=== PATIENT | male | born 1960 | race Two or more races ===

== ENCOUNTER 2024-09-11 19:33 | Emergency (ER) | payer OTHER ==
[~2024-09-11] VITALS: Ht 175.3 cm; Wt 86.2 kg
[2024-09-12] MEDS ORDERED: DOLOGESIC-DF 51 EACH PO (02:37)
== END 2024-09-12 02:45 ==
LOC: ER 20:19
DX: K40.90 Unilateral inguinal hernia, without obstruction or gangrene, not specified as recurrent (principal); R10.9 Unspecified abdominal pain; Z88.6 Allergy status to analgesic agent
CPT/HCPCS: 74022; 74177; Q9965

== ENCOUNTER 2024-10-22 05:22 | Day surgery (SDC) | payer OTHER ==
[2024-10-17 07:47] VITALS: BP 160/88
[2024-10-17 08:14] LABS: BASO % 1.6 % (0.1-1.2); EOS # 0.49 (0.04-0.54); EOS % 8.8 % (0.7-7.0); LYMPH # 1.04 (1.18-3.74); LYMPH % 18.7 % (19.3-53.1); MEAN PLATELET VOLUME 9.70 fl (9.4-12.4); MONO # 0.59 (0.24-0.82); MONO % 10.6 % (4.7-12.5); NEUT # 3.35 (1.56-6.13); NEUT % 60.1 % (34.0-71.1); RED CELL DISTRIBUTION WIDTH 12.0 % (11.6-14.4)
[2024-10-17 08:32] LABS: INR 0.94
[2024-10-17 08:33] LABS: URINE APPEARANCE Clear; URINE BILIRRUBIN Negative (NEGATIVE); URINE BLOOD Negative; URINE COLOR Yellow; URINE GLUCOSE Negative (NEGATIVE); URINE KETONE Negative (NEGATIVE); URINE LEUKOCYTE Negative; URINE NITRATE Negative; URINE PROTEIN Negative (NEGATIVE); URINE UROBILINOGEN 1.0 E.U./dl
[2024-10-17 08:43] LABS: URINE BACTERIA 1.1 uL (0.0-1933); URINE CAST 0.00 uL (0.0-1.40); URINE EPITHELIAL CELLS 0.1 uL (0.0-38.8); URINE RBC 1.1 uL (0.0-20.8); URINE WBC 0.1 uL (0.0-23.2)
[2024-10-17 09:08] LABS: ALT/SGPT 35.0 U/L (12-78); AST/SGOT 21.0 U/L (15-37); BILIRUBIN TOTAL 1.32 mg/dL (0.3-1.2); BUN CREA RATIO 18.0 (7.0-25.0); CREATININE SERUM 0.74 mg/dL (0.70-1.30); GFR 107.17; GLOBULINA 3.7 G/DL (2.4-3.5); GLUCOSE FASTING 102.0 mg/dL (65-100); OSMOLALITY SERUM 283.0 MOSM/KG (275-295)
[~2024-10-22 05:22] MED LIST: DOLOGESIC-DF 51 EACH PO
[2024-10-22] MEDS ORDERED: CEFAZOLIN SODIUM 1,000 MG VIAL IV ONE (09:15)
[2024-10-22] MEDS ORDERED: MORPHINE SULFATE 4 MG/ML VIAL IV ONE (11:40)
== END 2024-10-22 16:25 | disposition home or self-care (01) ==
LOC: CIR.AMB 05:22
PROVIDERS: ATTEND Surgery
DX: K40.31 Unilateral inguinal hernia, with obstruction, without gangrene, recurrent (principal); Z88.6 Allergy status to analgesic agent